=== PATIENT | female | born 1985 | race Caucasian/White ===

== ENCOUNTER → 2016-04-23 | Outpatient (REF) | payer OTHER | LOC: M SFHCWAGY 15:08 | PROVIDERS: ATTEND Nurse Practitioner Women's Health | DX: Z12.4 Encounter for screening for malignant neoplasm of cervix (principal) ==

== ENCOUNTER → 2016-09-12 | Outpatient (REF) | payer OTHER | LOC: M SFHCLERA 10:44 | PROVIDERS: ATTEND Physician Assistant | DX: R30.0 Dysuria (principal) ==

== ENCOUNTER → 2017-01-18 | Outpatient (REF) | payer OTHER | LOC: M SFHCLERA 17:02 | PROVIDERS: ATTEND Nurse Practitioner Family | DX: R82.90 Unspecified abnormal findings in urine (principal) ==

== ENCOUNTER → 2017-09-06 | Outpatient (REF) | payer OTHER | LOC: M LAB REF 18:58 | DX: Z12.4 Encounter for screening for malignant neoplasm of cervix (principal) ==

== ENCOUNTER → 2018-08-16 | Outpatient (REF) | payer OTHER | LOC: M SFHCLERA 15:04 | PROVIDERS: ATTEND Physician Assistant | DX: R30.0 Dysuria (principal) ==

== ENCOUNTER → 2018-09-07 | Outpatient (REF) | payer OTHER ==
[2018-09-12 14:07] LABS: HPV HYBRID CAPTURE II Negative (Negative)
== END ==
LOC: M SFHCWAGY 15:48
PROVIDERS: ATTEND Nurse Practitioner Women's Health
DX: Z12.4 Encounter for screening for malignant neoplasm of cervix (principal)

== ENCOUNTER → 2018-12-18 | Outpatient (REF) | payer OTHER ==
[2018-12-18 12:46] LABS: APPEARANCE, URINE CLEAR (CLEAR); BACTERIA, URINE AUTO 1+ (NEGATIVE); BILIRUBIN, URINE AUTO NEGATIVE (NEGATIVE); BLOOD, URINE BLOOD NEGATIVE (NEGATIVE); COLOR, URINE STRAW (YELLOW); GLUCOSE, URINE (UA) AUTO NEGATIVE (NEGATIVE); KETONE, URINE AUTO NEGATIVE (NEGATIVE); LEUKOCYTE ESTERASE, URINE AUTO NEGATIVE (NEGATIVE); NITRITE, URINE AUTO NEGATIVE (NEGATIVE); PROTEIN, URINE AUTO NEGATIVE (NEGATIVE); RBC, URINE AUTO 1 /HPF (0-3); SPECIFIC GRAVITY URINE AUTO 1.011 (1.002-1.035); SQUAMOUS EPITHELIAL CELL UR AU 1 /HPF (0-6); UROBILINOGEN, URINE AUTO 0.2 mg/dL (0.0-2.0); WBC, URINE AUTO 0 /HPF (0-3)
== END ==
LOC: M SFHCLERA 09:56
PROVIDERS: ATTEND Family Medicine
DX: R82.90 Unspecified abnormal findings in urine (principal)

== ENCOUNTER → 2019-01-05 | Outpatient (REF) | payer OTHER | LOC: M SFHCLERA 18:05 | PROVIDERS: ATTEND Nurse Practitioner Family | DX: L50.9 Urticaria, unspecified (principal) ==

== ENCOUNTER → 2019-06-12 | Outpatient (CLI) | payer OTHER ==
--- NOTE | 2019-06-12 17:24 | REP ---
Clinical: Pain with recent trauma Technique: AP, lateral, bilateral oblique views left foot . Findings: The osseous structures and joint spaces are intact and normal. There is no evidence for acute fracture or dislocation. Surrounding soft tissues are unremarkable. No subcutaneous emphysema or radiodense foreign body. Impression: No obvious acute fracture or dislocation. Electronically Signed by Trevor Power MD 06/12/2019 05:14 P
== END ==
LOC: M LRY 14:26
PROVIDERS: ATTEND Family Medicine
DX: M79.672 Pain in left foot (principal)